=== PATIENT | male | born 2000 | race Two or more races ===

== ENCOUNTER 2020-12-30 16:55 | Emergency (ER) | payer OTHER ==
[~2020-12-30] VITALS: Ht 167.6 cm; Wt 94.3 kg
--- NOTE | 2020-12-30 17:28 | NUR ---
SENDY HURST AT BEDSIDE FOR EVAL.
--- NOTE | 2020-12-30 18:05 | NUR ---
Patient discharged to home in stable condition. Written and verbal after care instructions given. Patient verbalizes understanding of instruction.
[2020-12-30 18:06] VITALS: BP 133/77
== END 2020-12-30 18:06 | disposition home or self-care (01) ==
LOC: ER 17:05
DX: F41.9 Anxiety disorder, unspecified (principal)